=== PATIENT | female | born 1965 | race African-American/Black ===

== ENCOUNTER 2018-05-30 17:05 | Emergency (ER) | payer MEDICARE ==
[~2018-05-30] VITALS: Ht 154.9 cm; Wt 96.0 kg
[~2018-05-30 17:05] MED LIST: ABILIFY5 MG PO; ALLOPURINOL100 MG PO; AMOXICILLIN/PO500 MG PO; AMOXICILLIN875 MG PO; ANUCORT-HC25 MG RE; ASPIRIN CHEWABL81 MG PO; ATENOLOL25 MG PO; ATENOLOL50 MG PO; ATROVENT HFA17 MCG IN; ATROVENT NASAL0.03 % NAB; ATROVENT NASAL0.03 % NAS; B COMPLEX PO; BACLOFEN10 MG PO; BENADRYL 50MG C50 MG PO; BUPROPION HCL300 MG PO; CELEBREX200 M1; CELEBREX200 MG PO; COLCHICINE PO; COLCHICINE0.6 M2; COMBIVENT RESPIMAT IN; CONZIP100 MG PO; CRANBERRY PLUS VITA1 PO; CYMBALTA30 MG PO; CYMBALTA60 MG PO; DETROL LA4 MG PO; DIAZEPAM5 MG PO; DIPHENHYDRAM25 MG PO; FENTANYL25 MCG/HR TD; FLUCONAZOLE100 MG PO; FLUTICASONE50 MCG NAB; FUROSEMIDE20 MG PO; GABAPENTIN800 MG PO; HYDROCHLORO25 MG/TAB PO; HYDROCHLOROT25 MG PO; HYDROCODONE/ACE1 TAB PO; HYDROMORPHON8 MG PO; IMITREX100 M1 PO; LASIX 40 MG TAB40 MG PO; LOPID600 MG PO; LOSARTAN POT25 MG PO; MAXZIDE-2537.5 MG/TA PO; MIRALAX3350 N1 PO; MITIGARE0.6 MG PO; MORPHINE SUL30 M3 PO; MOTRIN200 MG PO; NAPROSYN500 MG PO; NAPROXEN SOD220 M3 PO; OXYBUTYNIN5 M1 PO; OXYBUTYNIN5 MG PO; OXYCODONE HCL15 MG PO; PANTOPRAZOLE SO40 MG PO; STROMECTOL3 MG PO; SUMATRIPTAN25 MG PO; VALIUM5 MG PO; VITAMIN C PO
[2018-05-30] MEDS ORDERED: CIPROFLOXACN500 MG PO (17:41)
[2018-05-30] MEDS ORDERED: ALLERGY NA50 MCG/ACT NAB (17:43)
[2018-05-30] MEDS ORDERED: IPRATROPIU0.5 MG/3 M IN (17:44)
[2018-05-30] MEDS ORDERED: HYDROMORPHONE H PO (17:45)
[2018-05-30] MEDS ORDERED: VALIUM5 MG PO (17:47)
[2018-05-30] MEDS ORDERED: ADDERALL20 MG PO (17:48)
[2018-05-30] MEDS ORDERED: BACLOFEN20 MG PO (17:55)
[2018-05-30] MEDS ORDERED: FUROSEMIDE20 MG PO (17:55)
[2018-05-30] MEDS ORDERED: CELECOXIB200 MG PO (17:56)
[2018-05-30 17:57] LABS: HEMATOCRIT 40.1 % (37.0-47.0); HEMOGLOBIN 13.1 g/dl (12.0-16.0); IMMATURE GRANULOCYTES 0.8 % (0.0-5.0); MEAN CORPUSCULAR HGB CONC 32.7 g/L CALC (32.0-36.0); RED BLOOD COUNT 4.09 mill/uL (4.20-5.60); RED CELL DISTRI WIDTH 13.3 % (11.5-15.5)
[2018-05-30] MEDS ORDERED: DULOXETINE HCL60 MG PO (17:57)
[2018-05-30 17:58] LABS: URINE BILIRUBIN - DIPSTICK NEGATIVE (NEGATIVE); URINE BLOOD DIPSTICK NEGATIVE (NEGATIVE); URINE CLARITY CLEAR; URINE COLOR YELLOW; URINE GLUCOSE - DIPSTICK NEGATIVE (NEGATIVE); URINE KETONE NEGATIVE (NEGATIVE); URINE LEUK ESTERASE NEGATIVE (NEGATIVE); URINE NITRITE - DIPSTICK NEGATIVE (Negative); URINE PROTEIN - DIPSTICK NEGATIVE (NEG-TRACE); URINE UROBILINOGEN - DIPSTICK 0.2 E.U./dL (0.2)
[2018-05-30] MEDS ORDERED: MYRBETRIQ50 MG PO (18:00)
[2018-05-30] MEDS ORDERED: DITROPAN PO (18:00)
[2018-05-30] MEDS ORDERED: ATROVENT H17 MCG/ACT IN (18:01)
[2018-05-30] MEDS ORDERED: ALLOPURINOL300 MG PO (18:01)
[2018-05-30] MEDS ORDERED: ARIPIPRAZOLE10 MG PO (18:02)
[2018-05-30] MEDS ORDERED: OXYCOD/APAP1 TA4 PO (18:05)
[2018-05-30] MEDS ORDERED: AMPHETAMINE15 M1 PO (18:05)
[2018-05-30] MEDS ORDERED: FLUCONAZOLE100 MG PO (18:06)
[2018-05-30] MEDS ORDERED: ALBENZA200 MG PO (18:06)
[2018-05-30] MEDS ORDERED: PANTOPRAZOLE SO40 M1 PO (18:07)
[2018-05-30] MEDS ORDERED: GLYCOLAX3350 NF PO (18:08)
[2018-05-30] MEDS ORDERED: LACTULOSE10 GM/15 M PO (18:08)
[2018-05-30] MEDS ORDERED: KETOCONAZOLE2 % EX (18:09)
[2018-05-30] MEDS ORDERED: ESTRACE VAG0.1 MG/GM VA (18:10)
[2018-05-30 18:12] LABS: ALBUMIN 4.5 g/dL (3.2-5.0); ALKALINE PHOSPHATASE 98 u/l (38-126); BILIRUBIN, TOTAL 0.2 mg/dL (0.0-1.4); BUN 24 mg/dL (7-17); BUN/CREATININE RATIO 27 (12-20 (CALC)); CARBON DIOXIDE 28 mmol/l (22-30); CREATININE 0.9 mg/dL (0.5-1.0); GFR > 60 ML/MIN (>=60 (CALC)); GFR FOR AFR.AMER. > 60 ML/MIN (>=60 (CALC)); LIPASE 52 u/l (23-300); POTASSIUM 4.3 mmol/l (3.5-5.1); SGOT/AST 35 u/l (14-36); SODIUM 143 mmol/l (137-146); TOTAL PROTEIN 7.6 g/dL (6.3-8.2)
[2018-05-30 18:14] LABS: ANION GAP 12 (6-22 (CALC)); CHLORIDE 107 mmol/l (95-108)
[2018-05-30] MEDS ORDERED: DOXYCYCL HYC100 MG PO (18:36)
[2018-05-30 18:40] VITALS: BP 122/68
== END 2018-05-30 18:40 | disposition home or self-care (01) ==
LOC: ED 17:05
PROVIDERS: Family Medicine
DX: S50.861A Insect bite (nonvenomous) of right forearm, initial encounter (principal); L03.113 Cellulitis of right upper limb; N39.0 Urinary tract infection, site not specified; I10 Essential (primary) hypertension; F32.9 Major depressive disorder, single episode, unspecified; F41.9 Anxiety disorder, unspecified; F98.8 Other specified behavioral and emotional disorders with onset usually occurring in childhood and adolescence; M79.7 Fibromyalgia; M19.90 Unspecified osteoarthritis, unspecified site; M06.9 Rheumatoid arthritis, unspecified; K21.9 Gastro-esophageal reflux disease without esophagitis; M10.9 Gout, unspecified; W57.XXXA Bitten or stung by nonvenomous insect and other nonvenomous arthropods, initial encounter

== ENCOUNTER 2019-06-17 10:26 | Emergency (ER) | payer MEDICARE ==
[~2019-06-17] VITALS: Ht 154.9 cm; Wt 92.0 kg
[~2019-06-17 10:26] MED LIST changes: +ADDERALL20 MG PO; +ALBENZA200 MG PO; +ALLERGY NA50 MCG/ACT NAB; +ALLOPURINOL300 MG PO; +AMPHETAMINE15 M1 PO; +ARIPIPRAZOLE10 MG PO; +ATROVENT H17 MCG/ACT IN; +BACLOFEN20 MG PO; +CELECOXIB200 MG PO; +CIPROFLOXACN500 MG PO; +DITROPAN PO; +DOXYCYCL HYC100 MG PO; +DULOXETINE HCL60 MG PO; +ESTRACE VAG0.1 MG/GM VA; +GLYCOLAX3350 NF PO; +HYDROMORPHONE H PO; +IPRATROPIU0.5 MG/3 M IN; +KETOCONAZOLE2 % EX; +LACTULOSE10 GM/15 M PO; +MYRBETRIQ50 MG PO; +OXYCOD/APAP1 TA4 PO; +PANTOPRAZOLE SO40 M1 PO
[2019-06-17 13:59] VITALS: BP 103/60
== END 2019-06-17 14:07 | disposition home or self-care (01) ==
LOC: ED 10:26
DX: T40.2X1A Poisoning by other opioids, accidental (unintentional), initial encounter (principal); I10 Essential (primary) hypertension

== ENCOUNTER 2019-12-19 | Emergency (ER) | payer MEDICARE, MEDICAID ==
[~2019-12-19] MED LIST changes: -DITROPAN PO; +DITROPAN5 MG/TA1 PO
[2019-12-19] MEDS ORDERED: HYDROXYZ HCL25 MG PO ×2 (23:49)
[2019-12-19] MEDS ORDERED: TRIAMCINOLON0.13 EX ×2 (23:49)
== END 2019-12-20 00:17 | disposition home or self-care (01) ==
DX: S50.861A Insect bite (nonvenomous) of right forearm, initial encounter (principal); S70.361A Insect bite (nonvenomous), right thigh, initial encounter; I10 Essential (primary) hypertension; W57.XXXA Bitten or stung by nonvenomous insect and other nonvenomous arthropods, initial encounter

== ENCOUNTER 2020-05-07 15:46 | Emergency (ER) | payer MEDICARE, MEDICAID ==
[~2020-05-07] VITALS: Ht 152.4 cm; Wt 70.0 kg
[~2020-05-07 15:46] MED LIST changes: +HYDROXYZ HCL25 MG PO; +TRIAMCINOLON0.13 EX
[2020-05-07] MEDS ORDERED: KEFLEX500 M1 PO ×2 (17:57)
[2020-05-07] MEDS ORDERED: PEPCID20 MG PO ×2 (17:57)
[2020-05-07] MEDS ORDERED: PREDNISONE20 MG PO ×2 (17:57)
[2020-05-07] MEDS ORDERED: BENADRYL25 M1 PO ×2 (17:57)
[2020-05-07 18:01] VITALS: BP 136/62
== END 2020-05-07 18:10 | disposition home or self-care (01) ==
LOC: ED 15:46
DX: L03.113 Cellulitis of right upper limb (principal); T63.481A Toxic effect of venom of other arthropod, accidental (unintentional), initial encounter; I10 Essential (primary) hypertension

== ENCOUNTER 2020-05-16 14:56 | Emergency (ER) | payer MEDICARE, MEDICAID ==
[~2020-05-16] VITALS: Ht 149.9 cm; Wt 88.6 kg
[~2020-05-16 14:56] MED LIST changes: +BENADRYL25 M1 PO; +KEFLEX500 M1 PO; +PEPCID20 MG PO; +PREDNISONE20 MG PO
[2020-05-16] MEDS ORDERED: KEFLEX500 M1 PO ×3 (16:22→16:34)
[2020-05-16] MEDS ORDERED: BACTROBAN TOP ×3 (16:22→16:36)
[2020-05-16 16:28] VITALS: BP 120/70
== END 2020-05-16 16:35 | disposition home or self-care (01) ==
LOC: ED 14:56
DX: S80.862A Insect bite (nonvenomous), left lower leg, initial encounter (principal); L03.116 Cellulitis of left lower limb; I10 Essential (primary) hypertension; W57.XXXA Bitten or stung by nonvenomous insect and other nonvenomous arthropods, initial encounter

== ENCOUNTER 2020-05-24 21:53 | Emergency (ER) | payer MEDICARE, MEDICAID ==
[~2020-05-24] VITALS: Ht 149.9 cm; Wt 89.0 kg
[~2020-05-24 21:53] MED LIST changes: +BACTROBAN TOP
[2020-05-24] MEDS ORDERED: HYDROXYZ HCL25 MG PO (22:17)
[2020-05-24] MEDS ORDERED: CLOBETASOL0.051 EX (22:17)
[2020-05-24 22:40] VITALS: BP 132/65
== END 2020-05-24 22:40 | disposition home or self-care (01) ==
LOC: ED 21:53
DX: S10.96XA Insect bite of unspecified part of neck, initial encounter (principal); I10 Essential (primary) hypertension; M06.9 Rheumatoid arthritis, unspecified; I87.2 Venous insufficiency (chronic) (peripheral); W57.XXXA Bitten or stung by nonvenomous insect and other nonvenomous arthropods, initial encounter

== ENCOUNTER 2020-12-15 | Emergency (ER) | payer MEDICARE, MEDICAID ==
[~2020-12-15] MED LIST changes: +CLOBETASOL0.051 EX
[2020-12-15] MEDS ORDERED: ATENOLOL25 MG PO (20:13)
[2020-12-15] MEDS ORDERED: FUROSEMIDE20 MG PO (20:14)
[2020-12-15] MEDS ORDERED: KETOCONAZOLE21 TOP (20:14)
[2020-12-15] MEDS ORDERED: ATROVENT H17 MCG/ACT (20:16)
[2020-12-15] MEDS ORDERED: MITIGARE0.6 MG PO (20:17)
[2020-12-15] MEDS ORDERED: PROTONIX40 M2 PO (20:17)
[2020-12-15] MEDS ORDERED: LOSARTAN POTASS25 MG PO (20:18)
[2020-12-15] MEDS ORDERED: OXYBUTYNIN CHLOR5 M1 PO (20:19)
[2020-12-15] MEDS ORDERED: FLONASE AL50 MCG/ACT (20:20)
[2020-12-15] MEDS ORDERED: HYDROMORPHONE H PO (20:21)
[2020-12-15] MEDS ORDERED: PREMIUM LIDOCAINE5 % TOP (20:24)
[2020-12-15] MEDS ORDERED: GABAPENTIN100 MG PO (20:24)
[2020-12-15] MEDS ORDERED: OXYCODO-APAP1 TA2 PO (20:25)
[2020-12-15] MEDS ORDERED: SUMATRIPTAN25 MG PO (20:26)
[2020-12-15] MEDS ORDERED: ARIPIPRAZOLE5 MG PO (20:27)
[2020-12-15] MEDS ORDERED: CYMBALTA60 MG PO (20:27)
[2020-12-15] MEDS ORDERED: EVEKEO10 MG PO (20:29)
[2020-12-15] MEDS ORDERED: DIAZEPAM2 MG PO (20:30)
== END 2020-12-15 20:38 | disposition home or self-care (01) ==
PROC: 0HQGXZZ Repair Left Hand Skin, External Approach (ICD-10-PCS; principal; 2020-12-15)
DX: S61.217A Laceration without foreign body of left little finger without damage to nail, initial encounter (principal); I10 Essential (primary) hypertension; F32.9 Major depressive disorder, single episode, unspecified; F41.9 Anxiety disorder, unspecified; M06.9 Rheumatoid arthritis, unspecified; K21.9 Gastro-esophageal reflux disease without esophagitis; M19.90 Unspecified osteoarthritis, unspecified site; W26.0XXA Contact with knife, initial encounter; Y93.G3 Activity, cooking and baking; Y92.000 Kitchen of unspecified non-institutional (private) residence as the place of occurrence of the external cause

== ENCOUNTER 2021-03-26 22:00 | Emergency (ER) | payer MEDICARE, MEDICAID ==
[~2021-03-26] VITALS: Ht 149.9 cm; Wt 86.0 kg
[~2021-03-26 22:00] MED LIST changes: +ARIPIPRAZOLE5 MG PO; +ATROVENT H17 MCG/ACT; +DIAZEPAM2 MG PO; +EVEKEO10 MG PO; +GABAPENTIN100 MG PO; +KURIC2 % EX; +LIDOCAINE 5%5 % TOP; +LOSARTAN POTASS25 MG PO; +OXYBUTYNIN CHLOR5 M1 PO; +OXYCODO-APAP1 TA2 PO; +PROTONIX40 M2 PO; +[UNRECOGNIZED DRUG - OTHER] IN
[2021-03-27 00:20] VITALS: BP 110/66
== END 2021-03-27 00:23 | disposition home or self-care (01) ==
LOC: ED 22:00
DX: S70.01XA Contusion of right hip, initial encounter (principal); M25.561 Pain in right knee; I10 Essential (primary) hypertension; F32.9 Major depressive disorder, single episode, unspecified; F41.9 Anxiety disorder, unspecified; M06.9 Rheumatoid arthritis, unspecified; M19.90 Unspecified osteoarthritis, unspecified site; K21.9 Gastro-esophageal reflux disease without esophagitis; W06.XXXA Fall from bed, initial encounter; Y92.003 Bedroom of unspecified non-institutional (private) residence as the place of occurrence of the external cause

== ENCOUNTER 2021-07-21 03:43 | Emergency (ER) | payer MEDICARE, MEDICAID ==
[~2021-07-21] VITALS: Ht 144.8 cm; Wt 75.0 kg
[~2021-07-21 03:43] MED LIST changes: +FLONASE AL50 MCG/ACT; +KETOCONAZOLE21 TOP; -KURIC2 % EX; -LIDOCAINE 5%5 % TOP; +PREMIUM LIDOCAINE5 % TOP; -[UNRECOGNIZED DRUG - OTHER] IN
[2021-07-21] MEDS ORDERED: ALLOPURINOL100 MG PO (04:00)
[2021-07-21] MEDS ORDERED: VOLTAREN1%GEL TOP (04:01)
[2021-07-21] MEDS ORDERED: AMPHETAMINE SUL10 MG PO (04:04)
[2021-07-21] MEDS ORDERED: ARIPIPRAZOLE5 MG PO (04:05)
[2021-07-21 04:24] LABS: HEMATOCRIT 38.3 % (37.0-47.0); HEMOGLOBIN 12.7 g/dl (12.0-16.0); IMMATURE GRANULOCYTES 0.7 % (0.0-5.0); MEAN CELL VOLUME 95.5 fL CALC (80.0-100.0); MEAN CORPUSCULAR HGB 31.7 pG CALC (26.0-32.0); MEAN CORPUSCULAR HGB CONC 33.2 g/dL CAL (32.0-36.0); NEUT# 2.17 thou/uL (2.00-7.15); RED BLOOD COUNT 4.01 mill/uL (4.20-5.60); RED CELL DISTRI WIDTH 12.4 % (11.5-15.5)
[2021-07-21 04:39] LABS: ALBUMIN 3.9 g/dL (3.2-5.0); ALKALINE PHOSPHATASE 107 u/l (38-126); ANION GAP 10 (6-22 (CALC)); BILIRUBIN, TOTAL 0.4 mg/dL (0.0-1.4); BUN 13 mg/dL (7-17); BUN/CREATININE RATIO 16 (12-20 (CALC)); C-REACTIVE PROTEIN 0.6 mg/dL (0-0.9); CARBON DIOXIDE 32 mmol/l (22-30); CHLORIDE 103 mmol/l (95-108); CREATININE 0.8 mg/dL (0.5-1.0); GFR > 60 ML/MIN (>=60 (CALC)); GFR FOR AFR.AMER. > 60 ML/MIN (>=60 (CALC)); LIPASE 43 u/l (23-300); MAGNESIUM 1.9 mg/dL (1.6-2.3); POTASSIUM 3.7 mmol/l (3.5-5.1); SGOT/AST 26 u/l (14-36); SODIUM 141 mmol/l (137-146)
[2021-07-21 05:41] LABS: URINE BILIRUBIN - DIPSTICK NEGATIVE (NEGATIVE); URINE BLOOD DIPSTICK NEGATIVE (NEGATIVE); URINE COLOR YELLOW; URINE GLUCOSE - DIPSTICK NEGATIVE (NEGATIVE); URINE KETONE NEGATIVE (NEGATIVE); URINE LEUK ESTERASE NEGATIVE (NEGATIVE); URINE PROTEIN - DIPSTICK NEGATIVE (NEG-TRACE); URINE UROBILINOGEN - DIPSTICK 0.2 E.U./dL (0.2)
[2021-07-21 05:47] LABS: URINE NITRITE - DIPSTICK NEGATIVE (Negative)
[2021-07-21] MEDS ORDERED: CYMBALTA30 MG PO (07:13)
[2021-07-21] MEDS ORDERED: BACLOFEN10 MG PO (07:13)
[2021-07-21] MEDS ORDERED: COMBIVENT RESPIMAT IN (07:14)
[2021-07-21] MEDS ORDERED: VENTOLIN HFA IN (07:16)
[2021-07-21] MEDS ORDERED: IMITREX25 MG PO (07:16)
[2021-07-21] MEDS ORDERED: ESTRADIOL0.1 MG/GM VA (07:17)
[2021-07-21] MEDS ORDERED: ADDERALL10 MG PO (07:20)
[2021-07-21 08:00] VITALS: BP 101/60
== END 2021-07-21 08:00 | disposition home or self-care (01) ==
LOC: ED 03:43
PROVIDERS: Emergency Medicine
PROC: 0HQGXZZ Repair Left Hand Skin, External Approach (ICD-10-PCS; principal; 2021-07-21)
DX: S09.90XA Unspecified injury of head, initial encounter (principal); S61.215A Laceration without foreign body of left ring finger without damage to nail, initial encounter; S70.10XA Contusion of unspecified thigh, initial encounter; S70.00XA Contusion of unspecified hip, initial encounter; M25.561 Pain in right knee; R05.3 Chronic cough; M16.0 Bilateral primary osteoarthritis of hip; B07.0 Plantar wart; I10 Essential (primary) hypertension; F32.A Depression, unspecified; F41.9 Anxiety disorder, unspecified; M06.9 Rheumatoid arthritis, unspecified; K21.9 Gastro-esophageal reflux disease without esophagitis; M10.9 Gout, unspecified; W01.110A Fall on same level from slipping, tripping and stumbling with subsequent striking against sharp glass, initial encounter; Y92.000 Kitchen of unspecified non-institutional (private) residence as the place of occurrence of the external cause; Z79.01 Long term (current) use of anticoagulants

== ENCOUNTER 2021-11-18 04:27 | Emergency (ER) | payer MEDICARE, MEDICAID ==
[~2021-11-18] VITALS: Ht 144.8 cm; Wt 80.0 kg
[~2021-11-18 04:27] MED LIST changes: +ADDERALL10 MG PO; +AMPHETAMINE SUL10 MG PO; +ESTRADIOL0.1 MG/GM VA; +IMITREX25 MG PO; +VENTOLIN HFA IN; +VOLTAREN1%GEL TOP
[2021-11-18 04:43] VITALS: BP 130/78
[2021-11-18 04:46] VITALS: BP 133/75
[2021-11-18 05:01] VITALS: BP 100/46
[2021-11-18 05:13] LABS: HEMATOCRIT 37.1 % (37.0-47.0); HEMOGLOBIN 11.8 g/dl (12.0-16.0); IMMATURE GRANULOCYTES 0.2 % (0.0-5.0); MEAN CELL VOLUME 97.6 fL CALC (80.0-100.0); MEAN CORPUSCULAR HGB 31.1 pG CALC (26.0-32.0); MEAN CORPUSCULAR HGB CONC 31.8 g/dL CAL (32.0-36.0); NEUT# 3.29 thou/uL (2.00-7.15); RED BLOOD COUNT 3.8 mill/uL (4.20-5.60); RED CELL DISTRI WIDTH 12.5 % (11.5-15.5)
[2021-11-18 05:31] LABS: ALBUMIN 4.3 g/dL (3.2-5.0); ALKALINE PHOSPHATASE 117 u/l (38-126); ANION GAP 10 (6-22 (CALC)); BILIRUBIN, TOTAL 0.3 mg/dL (0.0-1.4); BUN 18 mg/dL (7-17); BUN/CREATININE RATIO 17 (12-20 (CALC)); CARBON DIOXIDE 31 mmol/l (22-30); CHLORIDE 103 mmol/l (95-108); CPK 217 u/l (30-165); GFR 57 ML/MIN (>=60 (CALC)); GFR FOR AFR.AMER. > 60 ML/MIN (>=60 (CALC)); POTASSIUM 4.3 mmol/l (3.5-5.1); SGOT/AST 27 u/l (14-36); SODIUM 139 mmol/l (137-146); TOTAL PROTEIN 7.4 g/dL (6.3-8.2)
[2021-11-18 05:42] LABS: MYOGLOBIN 82 ng/mL (0 - 62)
[2021-11-18 07:07] VITALS: BP 98/59
[2021-11-18 07:15] VITALS: BP 98/60
[2021-11-18 07:17] VITALS: BP 98/60
== END 2021-11-18 07:29 | disposition home or self-care (01) ==
LOC: ED 04:27
PROVIDERS: Family Medicine
DX: R55 Syncope and collapse (principal); S00.81XA Abrasion of other part of head, initial encounter; I10 Essential (primary) hypertension; F32.A Depression, unspecified; F41.9 Anxiety disorder, unspecified; M06.9 Rheumatoid arthritis, unspecified; K21.9 Gastro-esophageal reflux disease without esophagitis; M10.9 Gout, unspecified; W18.39XA Other fall on same level, initial encounter; Y92.009 Unspecified place in unspecified non-institutional (private) residence as the place of occurrence of the external cause

== ENCOUNTER 2022-08-08 22:28 | Emergency (ER) | payer MEDICARE, MEDICAID ==
[~2022-08-08] VITALS: Ht 144.8 cm; Wt 81.8 kg
[2022-08-08 23:14] VITALS: BP 105/71
[2022-08-08 23:30] VITALS: BP 116/77
[2022-08-08 23:45] VITALS: BP 104/53
[2022-08-09] VITALS: BP 93/57
== END 2022-08-09 00:22 | disposition home or self-care (01) ==
LOC: ED 22:28
DX: M54.9 Dorsalgia, unspecified (principal); M79.604 Pain in right leg; I10 Essential (primary) hypertension; F32.A Depression, unspecified; F41.9 Anxiety disorder, unspecified; M79.7 Fibromyalgia; M06.9 Rheumatoid arthritis, unspecified; K21.9 Gastro-esophageal reflux disease without esophagitis; M10.9 Gout, unspecified; M19.90 Unspecified osteoarthritis, unspecified site; Z79.899 Other long term (current) drug therapy; Z79.891 Long term (current) use of opiate analgesic

== ENCOUNTER 2024-09-06 18:57 | Emergency (ER) | payer MEDICARE, MEDICAID ==
[~2024-09-06] VITALS: Ht 147.3 cm; Wt 88.0 kg
[~2024-09-06 18:57] MED LIST changes: +MIRALAX17 GM PO; +VOLTAREN - GENE75 MG PO
[2024-09-06 23:00] VITALS: BP 101/66
[2024-09-06] MEDS ORDERED: VANCOMYCIN HCL 1 GM in SODIUM CHLORIDE 0.9% 500 ML IV ONE (23:10)
[2024-09-06 23:36] VITALS: BP 106/70
[2024-09-06 23:37] LABS: BASO% 0.4 % (0-3); HEMATOCRIT 33.5 % (37.0-47.0); HEMOGLOBIN 10.7 g/dl (12.0-16.0); IMMATURE GRANULOCYTES 0.2 % (0.0-5.0); LYMPH% 29.1 % (15-41); MEAN CELL VOLUME 97.4 fL CALC (80.0-100.0); MEAN CORPUSCULAR HGB 31.1 pG CALC (26.0-32.0); MEAN CORPUSCULAR HGB CONC 31.9 g/dL CAL (32.0-36.0); MONO% 9.1 % (2-13); NEUT# 2.72 thou/uL (2.00-7.15); NEUT% 57.2 % (42-76); RED BLOOD COUNT 3.44 mill/uL (4.20-5.60); RED CELL DISTRI WIDTH 12.8 % (11.5-15.5)
[2024-09-06 23:49] LABS: ALBUMIN 3.9 g/dL (3.2-5.0); BILIRUBIN, TOTAL 0.3 mg/dL (0.02-1.3); CREATININE 0.9 mg/dL (0.5-1.0); POTASSIUM 3.6 mmol/l (3.5-5.1); TOTAL PROTEIN 6.7 g/dL (6.3-8.2)
[2024-09-06] MEDS ORDERED: CEPHALEXIN500 MG PO (23:58)
[2024-09-07] VITALS: BP 107/62
[2024-09-07 02:00] VITALS: BP 118/72
[2024-09-07 03:00] VITALS: BP 117/74
[2024-09-07 03:35] VITALS: BP 117/74
== END 2024-09-07 03:35 | disposition home or self-care (01) ==
LOC: ED 18:57
PROVIDERS: Family Medicine
DX: L03.116 Cellulitis of left lower limb (principal); L03.115 Cellulitis of right lower limb; I10 Essential (primary) hypertension; F41.9 Anxiety disorder, unspecified; F32.A Depression, unspecified
CPT/HCPCS: J3370